=== PATIENT | female | born 1970 ===

== ENCOUNTER 2023-05-15 17:00 | Outpatient (CLI) | payer MEDICARE, OTHER, SELFPAY | END 2023-05-15 17:01 | disposition home or self-care (01) | LOC: SLEEPLAB 17:00 | PROVIDERS: ATTEND Family Medicine | DX: G47.33 Obstructive sleep apnea (adult) (pediatric) (principal); R53.83 Other fatigue; I10 Essential (primary) hypertension; K22.70 Barrett's esophagus without dysplasia; J45.909 Unspecified asthma, uncomplicated; R51.9 Headache, unspecified; F32.A Depression, unspecified; R53.1 Weakness; G47.10 Hypersomnia, unspecified | CPT/HCPCS: 95800 ==